=== PATIENT | female | born 1960 | race Caucasian/White ===

== ENCOUNTER 2021-09-20 06:50 | Day surgery (SDC) | payer BC ==
[~2021-09-20] VITALS: Ht 165.1 cm; Wt 51.8 kg
[~2021-09-20 06:50] MED LIST: BIRTH CONTROL; CEPH500 PO; KETO10 PO; TRAM50 PO
== END 2021-09-20 09:19 | disposition home or self-care (01) ==
LOC: ORSCSDS 06:50
PROVIDERS: Surgery
PROC: 0DJD8ZZ Inspection of Lower Intestinal Tract, Via Natural or Artificial Opening Endoscopic (ICD-10-PCS; principal; 2021-09-20 08:00)
DX: Z12.11 Encounter for screening for malignant neoplasm of colon (principal); K64.8 Other hemorrhoids; K64.4 Residual hemorrhoidal skin tags; K21.9 Gastro-esophageal reflux disease without esophagitis; E78.5 Hyperlipidemia, unspecified
CPT/HCPCS: J2250; J2405; J2704; J7120